=== PATIENT | female | born 1985 | race Native Hawaiian/Other Pacific Islander ===

== ENCOUNTER 2020-08-16 17:53 | Outpatient (CLI) | payer OTHER | END 2020-08-16 23:16 | disposition home or self-care (01) | LOC: LABW 17:53 | PROVIDERS: ATTEND Family Medicine | DX: R19.7 Diarrhea, unspecified (principal) | CPT/HCPCS: 83630; 87015; 87045; 87324; 87328; 87329; 87449; 87899 ==